=== PATIENT | male | born 1990 | race Caucasian/White ===

== ENCOUNTER 2017-08-16 19:26 | Emergency (ER) | payer OTHER ==
[~2017-08-16] VITALS: Ht 180.3 cm; Wt 85.7 kg
--- NOTE | 2017-08-16 19:31 | ED HEAD/FACIAL INJ COMPLAINT ---
History of Present Illness General Chief Complaint: Fall Stated Complaint: "FALL WITH LAC? TO HEAD" Source: patient, family, EMS Exam Limitations: no limitations Vital Signs & Intake/Output Vital Signs & Intake/Output Vital Signs Date Time Temp Pulse Resp B/P B/P Pulse O2 O2 Flow FiO2 Mean Ox Delivery Rate 08/16 2102 97.1 90 16 126/85 95 Room Air 08/169 99.2 104 20 144/104 100 Allergies Coded Allergies: No Known Drug Allergies (NKDA 08/16/17) Triage Nurses Notes Reviewed? yes HPI: Patient was walking around his pool when he slipped on the wet deck and fell backwards hitting his head. There was no loss of consciousness. Positive laceration. EMS was contacted and patient was brought in by ambulance. Patient is up-to-date on his tetanus shot. Patient denies any headache or blurry vision. There is no nausea or vomiting. There is no neck pain. Patient does admit to drinking 6-7 beers today. Past History Travel History Traveled to [place] past 21 day No Medical History Any Pertinent Medical History? none Neurological: NONE EENT: NONE Cardiovascular: NONE Respiratory: NONE Gastrointestinal: NONE Hepatic: NONE Renal: NONE Musculoskeletal: NONE Psychiatric: NONE Endocrine: NONE Surgical History Surgical History: non-contributory Psychosocial History What is your primary language Czech Tobacco Use: Never used ETOH Use: occasional use Illicit Drug Use: denies illicit drug use Family History Hx Contributory? No Review of Systems Review of Systems Constitutional: Reports: no symptoms. EENTM: Reports: no symptoms. Respiratory: Reports: no symptoms. Cardiovascular: Reports: no symptoms. GI: Reports: no symptoms. Genitourinary: Reports: no symptoms. Musculoskeletal: Reports: no symptoms. Skin: Reports: see HPI (LACERATION). Neurological/Psychological: Reports: no symptoms. Hematologic/Endocrine: Reports: no symptoms. Immunologic/Allergic: Reports: no symptoms. All Other Systems: Reviewed and Negative Physical Exam Physical Exam General Appearance: well developed/nourished, mild distress Head: 4CM LINEAR LAC TO SCALP, SUPERFICIAL Eyes: Bilateral: PERRL, EOMI. Ears, Nose, Throat: normal pharynx, normal ENT inspection, hearing grossly normal Neck: normal inspection, supple Respiratory: normal breath sounds Cardiovascular: regular rate/rhythm Gastrointestinal: soft, non-tender Back: normal inspection Extremities: normal inspection, normal range of motion, no edema Psychiatric: awake, alert, oriented x 3 Cranial Nerves: normal hearing, normal speech, PERRL Coordination/Gait: normal gait Motor/Sensory: no motor/sensory deficits Skin: intact, normal color, warm/dry Lymphatic: no anterior cervical anival Progress Differential Diagnosis: c-spine injury, ICH, skull fracture Plan of Care: Orders Procedure Date/time Status CT HEAD WO IV CONTRAST 08/[address] CERV SPINE WO IV CONTRAST 08/16 1936 Active Diagnostic Imaging: Viewed by Me: CT Scan. Discussed w/RAD: CT Scan. Radiology Impression: PATIENT: TENNILLE RECINOS PRESENT AGE: 27 PATIENT ACCOUNT NO: [id number] : 91 LOCATION: [facility] ORDERING PHYSICIAN: Sukumar Scott MD SERVICE DATE: 08/16/17 EXAM TYPE: CAT - CT HEAD WO IV CONTRAST EXAMINATION: CT HEAD WITHOUT CONTRAST CT CERVICAL SPINE WITHOUT CONTRAST CLINICAL INFORMATION: Fall, head trauma COMPARISON: None TECHNIQUE: Contiguous axial imaging was performed from the skull base to vertex without intravenous administration of contrast. Contiguous axial imaging was performed from the cervical spine and source images were reviewed along with axial reconstructions and sagittal and coronal MPRs. DLP: 954.95 mGy-cm FINDINGS : There is no evidence of acute intracranial hemorrhage or territorial infarction. No abnormal mass effect or midline shift is seen. Springer to white matter differentiation is well preserved. No extra-axial fluid collections are identified. The ventricles are normal in size. There is no acute skull fracture. Luca are seen in the posterior superior scalp. The mastoid air cells and visualized portions of the paranasal sinuses are well aerated. FINDINGS: CT CERVICAL SPINE: The vertebral body height and alignment of cervical spine are within normal limits. The intervertebral disc spaces are preserved. The posterior elements are intact. There is no acute fracture or dislocation of cervical spine. The paraspinal soft tissues are unremarkable. The visualized lung apices are clear. IMPRESSION: No acute intracranial hemorrhage or acute skull fracture. No acute fracture or dislocation of cervical spine. DICTATED BY: Juvencio Austin MD DATE/TIME DICTATED:08/16/172050 COMPUTER TECHNICIAN:SHUN DATE/TIME TRANSCRIBED:08/16/172050 CONFIDENTIAL, DO NOT COPY WITHOUT APPROPRIATE AUTHORIZATION. <Electronically signed in Other Vendor System> SIGNED BY: Juvencio Austin MD 08/16/17 [id number] Departure Departure Disposition: HOME OR SELF CARE Condition: Stable Clinical Impression Primary Impression: Head injury Qualifiers: Encounter type: initial encounter Qualified Code: S09.90XA - Unspecified injury of head, initial encounter Secondary Impressions: Cervical strain Qualifiers: Encounter type: initial encounter Qualified Code: S16.1XXA - Strain of muscle, fascia and tendon at neck level, initial encounter Stapled skin wound Referrals: Adan Damon MD Additional Instructions: HAVE LUCA REMOVED IN 7 T0 10 DAYS RETURN SOONER IF YOU DEVELOP A WORSENING HEADACHE, NAUSEA AND VOMITING, CHANGE IN MENTAL STATUS, LACERATION TURNS RED, HOT TO THE TOUCH, PUS DRAIANGE OR FOR ANY OTHER CONCERNS Departure Forms: Customer Survey General Discharge Information Procedures Laceration/Wound Repair Laceration/Wound Repair: Wound Location: head Wound's Depth, Shape: linear, superficial Wound Length (cm): 4 Wound Explored: clean Suture Size/Type: luca Number of Sutures: 5 Layer Closure? No Tetanus Status: up to date
[2017-08-16 21:03] VITALS: BP 126/85
--- NOTE | 2017-08-16 21:05 | CT SCAN REPORT ---
EXAMINATION: CT HEAD WITHOUT CONTRAST CT CERVICAL SPINE WITHOUT CONTRAST CLINICAL INFORMATION: Fall, head trauma COMPARISON: None TECHNIQUE: Contiguous axial imaging was performed from the skull base to vertex without intravenous administration of contrast. Contiguous axial imaging was performed from the cervical spine and source images were reviewed along with axial reconstructions and sagittal and coronal MPRs. DLP: 954.95 mGy-cm FINDINGS: There is no evidence of acute intracranial hemorrhage or territorial infarction. No abnormal mass effect or midline shift is seen. Springer to white matter differentiation is well preserved. No extra-axial fluid collections are identified. The ventricles are normal in size. There is no acute skull fracture. Luca are seen in the posterior superior scalp. The mastoid air cells and visualized portions of the paranasal sinuses are well aerated. FINDINGS: CT CERVICAL SPINE: The vertebral body height and alignment of cervical spine are within normal limits. The intervertebral disc spaces are preserved. The posterior elements are intact. There is no acute fracture or dislocation of cervical spine. The paraspinal soft tissues are unremarkable. The visualized lung apices are clear. IMPRESSION: No acute intracranial hemorrhage or acute skull fracture. No acute fracture or dislocation of cervical spine.
== END 2017-08-16 21:24 ==
LOC: ERH 19:26
DX: S01.01XA Laceration without foreign body of scalp, initial encounter (principal); S09.90XA Unspecified injury of head, initial encounter; S16.1XXA Strain of muscle, fascia and tendon at neck level, initial encounter; W01.0XXA Fall on same level from slipping, tripping and stumbling without subsequent striking against object, initial encounter; Y93.01 Activity, walking, marching and hiking; Y92.9 Unspecified place or not applicable